=== PATIENT | female | born 1975 | race Hispanic/Latino ===

== ENCOUNTER 2018-03-19 07:33 | Emergency (ER) | payer BC ==
[2018-03-19] MEDS ORDERED: predniSONE 20 MG TAB ONE (07:56)
[2018-03-19] MEDS ORDERED: KETOROLAC 30 MG/ML INJ ONE (07:56)
--- NOTE | 2018-03-19 08:51 | ER ---
Nurse's Notes [facility] Name: Jeannette Lin Age: 42 yrs Sex: Female : 1975 Arrival Date: 03/19/2018 Time: 07:37 Bed 7 Private MD: Diagnosis: Radiculopathy, cervical region Presentation: 03/19 07:49 Presenting complaint: Patient states: pain to L side of neck that radiates down L arm ss that began 4 days ago. Pain is worse with movement of neck and palpation of the affected area. Denies injury. Transition of care: patient was not received from another setting of care. Acute neurological deficit: none identified. Onset of symptoms was March 15, 2018. Initial Sepsis Screen: Does the patient meet any 2 criteria? No. Patient's initial sepsis screen is negative. Does the patient have a suspected source of infection? No. Patient's initial sepsis screen is negative. Care prior to arrival: None. 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 - Social history:: Smoking status: Patient/guardian denies using tobacco. - Family history:: not pertinent. - Hospitalizations: : No recent hospitalization is reported. Screenin:00 Abuse screen: Denies threats or abuse. Nutritional screening: No deficits noted. aa5 Tuberculosis screening: No symptoms or risk factors identified. Fall Risk None identified. Assessment: 08:00 General: Appears uncomfortable, Behavior is calm, cooperative. Pain: Complains of pain aa5 in left side of neck Pain radiates to left arm Pain currently is 10 out of 10 on a pain scale. Quality of pain is described as sharp, shooting, Pain began 4 days ago Is continuous, Aggravated by increased activity. Neuro: Level of Consciousness is awake, alert, obeys commands, Oriented to person, place, time, situation. Cardiovascular: Heart tones S1 S2 present Rhythm is regular. Respiratory: Airway is patent Respiratory effort is even, unlabored, Respiratory pattern is regular, symmetrical. GI: No signs and/or symptoms were reported involving the gastrointestinal system. : No signs and/or symptoms were reported regarding the genitourinary system. EENT: No signs and/or symptoms were reported regarding the EENT system. Derm: Skin is pink, warm \T\ dry. Musculoskeletal: Range of motion: intact in all extremities. 08:30 Reassessment: Patient and/or family updated on plan of care and expected duration. Pain aa5 level reassessed. Patient is alert, oriented x 3, equal unlabored respirations, skin warm/dry/pink. Patient states feeling better. 08:30 Pain: Pain currently is 5 out of 10 on a pain scale. aa5 Vital Signs: 07:51 BP 109 / 69; Pulse 63; Resp 17; Temp 97.3(TE); Pulse Ox 98% on R/A; Height 5 ft. 7 in. ss (170.18 cm); 08:35 BP 103 / 65; Pulse 60; Resp 18 S; Pulse Ox 99% on R/A; Pain 5/10; aa5 ED Course: 07:37 Patient arrived in ED. sb2 07:40 José Luis Carson MD is Attending Physician. rn 07:50 eBla Delgado RN is Primary Nurse. aa5 07:50 Triage completed. ss 07:51 Arm band placed on right wrist. ss 08:00 Patient has correct armband on for positive identification. Bed in low position. Call aa5 light in reach. Side rails up X2. Adult w/ patient. 08:27 No provider procedures requiring assistance completed. aa5 08:58 Patient did not have IV access during this emergency room visit. aa5 Administered Medications: 08:00 Drug: TORadol 30 mg Route: IM; Site: left gluteus; aa5 08:00 Drug: predniSONE 60 mg Route: PO; aa5 Outcome: 08:50 Discharge ordered by . rn 08:58 Discharged to home ambulatory, with family. aa5 08:58 Condition: improved 08:58 Discharge instructions given to patient, Instructed on discharge instructions, follow up and referral plans. medication usage, Demonstrated understanding of instructions, follow-up care, medications, Prescriptions given X 2. 08:59 Patient left the ED. aa5 Signatures: José Luis Carson MD MD rn Calderon, Audri RN RN aa5 Kenya Sexton RN RN ss Alee Beckwith sb2
--- NOTE | 2018-03-19 08:51 | EDPHYS ---
Physician Documentation [facility] Name: Jeannette Lin Age: 42 yrs Sex: Female : 1975 Arrival Date: 03/19/2018 Time: 07:37 Bed 7 Private MD: ED Physician José Luis Carson HPI: 03/19 07:46 This 42 yrs old Female presents to ER via Unassigned with complaints of Neck rn Pain, >24Hrs Old, Headache > 24hrs Old, RAPID HEARTBEAT. 07:46 The patient or guardian complains of pain. The symptoms are located on the neck. Onset: rn The symptoms/episode began/occurred 1 week(s) ago. Associated signs and symptoms: Pertinent positives: This patient does not have any pertinent positive signs or symptoms associated with neck pain. Pertinent negatives: fever, bladder incontinence, bowel incontinence, numbness, tingling, weakness. The pain radiates to the left arm. Modifying factors: The symptoms are alleviated by nothing. the symptoms are aggravated by movement. Severity of symptoms: At their worst the symptoms were mild, in the emergency department the symptoms are unchanged. The patient has not experienced similar symptoms in the past. Reports neck pain that radiates down left arm, no chest pain/sob, no neck injuries, no weakness, reports left neck hurts to turn to left, and when moves left arm, no numbness/tingling, no other focal neurological complaints. . 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 - Social history:: Smoking status: Patient/guardian denies using tobacco. - Family history:: not pertinent. - Hospitalizations: : No recent hospitalization is reported. ROS: 07:46 Constitutional: Negative for fever, chills, and weight loss, Eyes: Negative for injury, rn pain, redness, and discharge, Neck: + neck pain Cardiovascular: Negative for chest pain Respiratory: Negative for shortness of breath, cough, wheezing, and pleuritic chest pain, Abdomen/GI: Negative for abdominal pain, nausea, vomiting, diarrhea, and constipation, MS/Extremity: Negative for injury and deformity, Skin: Negative for injury, rash, and discoloration, Neuro: Negative for weakness, numbness, tingling, and seizure. Exam: 07:46 Constitutional: This is a well developed, well nourished patient who is awake, alert, rn and in no acute distress. Head/Face: Normocephalic, atraumatic. Eyes: Pupils equal round and reactive to light, extra-ocular motions intact. Lids and lashes normal. Conjunctiva and sclera are non-icteric and not injected. Cornea within normal limits. Periorbital areas with no swelling, redness, or edema. Neck: Trachea midline, no thyromegaly or masses palpated, and no cervical lymphadenopathy. Supple, full range of motion without nuchal rigidity, or vertebral point tenderness. No Meningismus. Cardiovascular: Regular rate and rhythm with a normal S1 and S2. No gallops, murmurs, or rubs. Normal PMI, no JVD. No pulse deficits. Respiratory: Lungs have equal breath sounds bilaterally, clear to auscultation and percussion. No rales, rhonchi or wheezes noted. No increased work of breathing, no retractions or nasal flaring. Abdomen/GI: Soft, non-tender, with normal bowel sounds. No distension or tympany. No guarding or rebound. No evidence of tenderness throughout. Skin: Warm, dry with normal turgor. Normal color with no rashes, no lesions, and no evidence of cellulitis. MS/ Extremity: Pulses equal, no cyanosis. Neurovascular intact. + painful ROM left shoulder, + tender over left SCM/trapezius Neuro: Awake and alert, GCS 15, oriented to person, place, time, and situation. Cranial nerves II-XII grossly intact. Motor strength 5/5 in all extremities. Sensory grossly intact. Cerebellar exam normal. Normal gait. 08:49 ECG was reviewed by the Attending Physician. rn Vital Signs: 07:51 BP 109 / 69; Pulse 63; Resp 17; Temp 97.3(TE); Pulse Ox 98% on R/A; Height 5 ft. 7 in. ss (170.18 cm); 08:35 BP 103 / 65; Pulse 60; Resp 18 S; Pulse Ox 99% on R/A; Pain 5/10; aa5 MDM: 07:40 Patient medically screened. rn 08:49 Differential diagnosis: arthritis, Cervical Discogenic Pain Cervical Facet Syndrome rn Cervical Raiculopathy cervical strain, torticollis. Data reviewed: vital signs, nurses notes, EKG, and as a result, I will discharge patient. Counseling: I had a detailed discussion with the patient and/or guardian regarding: the historical points, exam findings, and any diagnostic results supporting the discharge/admit diagnosis, the need for outpatient follow up, to return to the emergency department if symptoms worsen or persist or if there are any questions or concerns that arise at home. Response to treatment: the patient's symptoms have mildly improved after treatment, and as a result, I will discharge patient. Special discussion: I discussed with the patient/guardian in detail that at this point there is no indication for admission to the hospital. It is understood, however, that if the symptoms persist or worsen the patient needs to return immediately for re-evaluation. 03/19 07:46 Order name: EKG; Complete Time: 07:46 rn 03/19 07:46 Order name: EKG - Nurse/Tech; Complete Time: 08:02 rn EC:49 Rate is 51 beats/min. Rhythm is regular. QRS [place] is Normal. HI interval is normal. QRS rn interval is normal. QT interval is normal. No Q waves. T waves are Normal. No ST changes noted. Clinical impression: Sinus bradycardia. Administered Medications: 08:00 Drug: TORadol 30 mg Route: IM; Site: left gluteus; aa5 08:00 Drug: predniSONE 60 mg Route: PO; aa5 Disposition: 03/19/18 08:50 Discharged to Home. Impression: Radiculopathy, cervical region. - Condition is Stable. - Discharge Instructions: Cervical Radiculopathy. - Prescriptions for Cyclobenzaprine 10 mg Oral Tablet - take 1 tablet by ORAL route every 8 hours As needed; 20 tablet. Medrol (Edgardo) 4 mg Oral Tablets, Dose Pack - take 1 tablet by ORAL route as directed - follow package instructions; 1 packet. - Medication Reconciliation Form, Thank You Letter, Antibiotic Education, Prescription Opioid Use form. - Follow up: Private Physician; When: As needed; Reason: Recheck today's complaints, Re-evaluation by your physician. - Problem is new. - Symptoms have improved. Signatures: José Luis Carson MD MD rn Calderon, Audri, RN RN aa5 Kenya Sexton RN RN ss Corrections: (The following items were deleted from the chart) 08:59 08:50 03/19/2018 08:50 Discharged to Home. Impression: Radiculopathy, cervical region. aa5 Condition is Stable. Forms are Medication Reconciliation Form, Thank You Letter, Antibiotic Education, Prescription Opioid Use. Follow up: Private Physician; When: As needed; Reason: Recheck today's complaints, Re-evaluation by your physician. Problem is new. Symptoms have improved. rn
[2018-03-19 09:03] VITALS: BP 109/69; TEMP 97.3; O2SAT 98
--- NOTE | 2018-03-20 05:49 | EKG ---
Test Date: 2018-03-19 Test Time: 07:55:51 Piano Bench Assembler: MARIMAR MEASUREMENT RESULTS: Intervals: Rate: 51 SC: 150 QRSD: 82 QT: 444 QTc: 409 [place]: P: 45 SC: 150 QRS: 47 T: 48 INTERPRETIVE STATEMENTS: Sinus bradycardia Otherwise normal ECG Compared to ECG 09/22/2012 09:59:11 No significant changes Electronically Signed On 03-20-18 05:48:52 CDT by Alber Persaud
== END 2018-03-19 08:59 | disposition home or self-care (01) ==
LOC: ER 07:33
DX: M54.12 Radiculopathy, cervical region (principal); I10 Essential (primary) hypertension
CPT/HCPCS: 93005; 96372; 99283; J7512

== ENCOUNTER 2018-09-19 15:07 | Emergency (ER) | payer BC ==
--- NOTE | 2018-09-19 15:22 | EKG ---
Test Date: 2018-09-19 Test Time: 15:15:59 Labourers: JESSICA MEASUREMENT RESULTS: Intervals: Rate: 60 DC: 144 QRSD: 76 QT: 398 QTc: 398 [place]: P: 39 DC: 144 QRS: 37 T: 55 INTERPRETIVE STATEMENTS: Normal sinus rhythm Normal ECG Compared to ECG 03/19/2018 07:55:51 Sinus bradycardia no longer present Electronically Signed On 09-19-18 15:22:10 FLATWORK FOLDER by Alber Persaud
--- NOTE | 2018-09-19 15:43 | RAD REPORT ---
EXAM DESCRIPTION: RAD - Chest Single View - 09/19/2018 3:38 pm CLINICAL HISTORY: CHEST PAIN Chest pain. COMPARISON: CHEST SINGLE VIEW dated 09/22/2012; CHEST SINGLE VIEW dated 09/08/2010 FINDINGS: Portable technique limits examination quality. The lungs are grossly clear. The heart is normal in size. No displaced fractures. IMPRESSION: No acute intrathoracic process suspected.
[2018-09-19] MEDS ORDERED: NA CHLORIDE 0.9% 1,000 ML ONE (15:59)
[2018-09-19] MEDS ORDERED: DIAZEPAM 10 MG/2 ML INJ SYRINGE ONE (16:01)
[2018-09-19 16:03] LABS: Absolute Lymphocytes (CBC) 3.3 K/uL (0.7-4.9); Absolute Monocytes 0.8 K/uL (0.1-1.3); Absolute Neutrophil 8.4 K/uL (1.8-8.0); Basophils % 0.6 % (0-1.3); Eosinophils % 2.3 % (0-4.4); Lymphocytes % 25.7 % (15.3-44.8); MCH 30.4 pg (27.0-35.0); MCV 87.2 fL (80-100); MPV 8.6 fL (7.6-11.3); Monocytes % 6.1 % (3.3-12.3); RBC Red Blood Cell Count 3.78 M/uL (3.86-4.86)
[2018-09-19 16:25] LABS: ALT/SGPT 27 U/L (12-78); AST/SGOT 21 U/L (15-37); Albumin 3.8 g/dL (3.4-5.0); Alkaline Phosphatase 102 U/L (45-117); BUN Blood Urea Nitrogen 25 mg/dL (7-18); Bicarbonate 22 mmol/L (21-32); Bilirubin Direct 0.1 mg/dL (0-0.2); Bilirubin Total 0.4 mg/dL (0.2-1.0); Glucose Level 83 mg/dL (74-106); Magnesium 2.2 mg/dL (1.8-2.4); Potassium 4.1 mmol/L (3.5-5.1); Sodium Level 139 mmol/L (136-145); Troponin (Emerg Dept Use Only) < 0.02 ng/mL (0.0-0.045)
--- NOTE | 2018-09-19 16:54 | RAD REPORT ---
EXAM DESCRIPTION: CT - Chest For Pe Angio - 09/19/2018 4:40 pm CLINICAL HISTORY: Chest pain and shortness of breath COMPARISON: None. TECHNIQUE: Dynamically enhanced axial 3 mm thick images of the chest were obtained during administra tion of <100> mL Isovue 370 IV contrast. Coronal and oblique reconstruction images were generated and reviewed. Exam utilizes a protocol for optimal evaluation of pulmonary arterial tree. Maximum intensity projections 3D imaging was utilized All CT scans are performed using dose optimization technique as appropriate and may include automated exposure control or mA/KV adjustment according to patient size. FINDINGS: A pulmonary embolus is not seen. A thoracic aortic aneurysm is not noted. Bovine aorta A pleural effusion is not seen. A pericardial effusion is not seen. A lung consolidation is not present. Calcified mediastinal and hilar lymph nodes are seen 1 Small right adrenal adenoma is seen IMPRESSION: Negative for a pulmonary embolism.
--- NOTE | 2018-09-19 17:51 | EDPHYS ---
Physician Documentation [facility] Name: Jeannette Lin Age: 42 yrs Sex: Female : 1975 Arrival Date: 09/19/2018 Time: 15:10 Bed 15 Private MD: ED Physician José Luis Carson HPI: 09/19 15:36 This 42 yrs old Female presents to ER via Ambulatory with complaints of Blood snw Pressure Problem, Dizziness. 15:36 Onset: The symptoms/episode began/occurred 2 week(s) ago, and became persistent. snw Associated signs and symptoms: Pertinent positives: chest pain, shortness of breath. Modifying factors: The patient symptoms are alleviated by nothing. The patient has not experienced similar symptoms in the past. The patient has been recently seen by a physician: the patient's primary care provider, at a clinic. pt attributes new s/s to beginning Statin for hyperlipidemia. Instructed today to stop lisinopril/HCTZ but refuses because if she does it causes swelling and she states it makes her feel worse.. 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 - Social history:: Smoking status: Patient/guardian denies using tobacco. - Ebola Screening: : Patient negative for fever greater than or equal to 101.5 degrees Fahrenheit, and additional compatible Ebola Virus Disease symptoms Patient denies exposure to infectious person Patient denies travel to an Ebola-affected area in the 21 days before illness onset No symptoms or risks identified at this time. ROS: 15:36 Constitutional: Negative for fever, chills, and weight loss, Eyes: Negative for injury, snw pain, redness, and discharge, ENT: Negative for injury, pain, and discharge, Neck: Negative for injury, pain, and swelling. 15:36 Abdomen/GI: Negative for abdominal pain, nausea, vomiting, diarrhea, and constipation, Back: Negative for injury and pain, : Negative for injury, bleeding, discharge, and swelling, MS/Extremity: Negative for injury and deformity, Skin: Negative for injury, rash, and discoloration, Neuro: Negative for headache, weakness, numbness, tingling, and seizure. 15:36 Cardiovascular: Positive for chest pain. 15:36 Respiratory: Positive for shortness of breath. Exam: 15:36 Head/Face: Normocephalic, atraumatic. Eyes: Pupils equal round and reactive to light, snw extra-ocular motions intact. Lids and lashes normal. Conjunctiva and sclera are non-icteric and not injected. Cornea within normal limits. Periorbital areas with no swelling, redness, or edema. ENT: Nares patent. No nasal discharge, no septal abnormalities noted. Tympanic membranes are normal and external auditory canals are clear. Oropharynx with no redness, swelling, or masses, exudates, or evidence of obstruction, uvula midline. Mucous membranes moist. Neck: Trachea midline, no thyromegaly or masses palpated, and no cervical lymphadenopathy. Supple, full range of motion without nuchal rigidity, or vertebral point tenderness. No Meningismus. Chest/axilla: Normal chest wall appearance and motion. Nontender with no deformity. No lesions are appreciated. Cardiovascular: Regular rate and rhythm with a normal S1 and S2. No gallops, murmurs, or rubs. Normal PMI, no JVD. No pulse deficits. 15:36 Constitutional: The patient appears alert, awake, anxious. 15:36 Respiratory: the patient does not display signs of respiratory distress, Respirations: shallow respirations, that is moderate, Breath sounds: are clear throughout, speaks in short bursts and then long inhalations. Vital Signs: 15:16 BP 109 / 45; Pulse 60; Resp 20; Temp 97.6; Pulse Ox 100% on R/A; Weight 112.04 kg; aj Height 5 ft. 3 in. (160.02 cm); 16:21 BP 90 / 58; Pulse 53; Resp 12; Pulse Ox 100% ; bp 17:00 BP 98 / 62; Pulse 57; Resp 14; Pulse Ox 100% ; bp 18:00 BP 111 / 61; Pulse 61; Resp 14; Pulse Ox 100% ; bp 15:16 Body Mass Index 43.75 (112.04 kg, 160.02 cm) aj MDM: 15:19 Patient medically screened. snw 17:51 Data reviewed: vital signs, nurses notes. Data interpreted: Pulse oximetry: on room air snw is 100 %. Counseling: I had a detailed discussion with the patient and/or guardian regarding: the historical points, exam findings, and any diagnostic results supporting the discharge/admit diagnosis, lab results, the need for outpatient follow up, to return to the emergency department if symptoms worsen or persist or if there are any questions or concerns that arise at home. Special discussion: Based on the patient's history, exam, and Dx evaluation, there is no indication for emergent intervention or inpatient Tx. It is understood by the patient/guardian that if the Sx's persist or worsen they need to return immediately for re-evaluation. Based on the history and exam findings, there is no indication for further emergent testing or inpatient evaluation. I discussed with the patient/guardian the need to see the construction supervisor for further evaluation of the symptoms. I discussed with the patient/guardian the need to see the primary care provider for further evaluation of the symptoms. 09/19 15:20 Order name: Basic Metabolic Panel; Complete Time: 16:29 snw 09/19 15:20 Order name: CBC with Diff; Complete Time: 16:14 snw 09/19 15:20 Order name: LFT's; Complete Time: 16:29 snw 09/19 15:20 Order name: Magnesium; Complete Time: 16:29 snw 09/19 15:20 Order name: Troponin (emerg Dept Use Only); Complete Time: 16:29 snw 09/19 15:20 Order name: TS; Complete Time: 17:03 snw 09/19 15:20 Order name: XRAY Chest (1 view); Complete Time: 15:53 snw 09/19 15:20 Order name: EKG; Complete Time: 15:21 snw 09/19 15:20 Order name: Cardiac monitoring; Complete Time: 15:48 snw 09/19 15:20 Order name: EKG - Nurse/Tech; Complete Time: 15:48 snw 09/19 15:20 Order name: IV Saline Lock; Complete Time: 15:48 snw 09/19 15:31 Order name: CT Chest For PE Angio; Complete Time: 17:03 snw 09/19 15:20 Order name: Labs collected and sent; Complete Time: 15:48 snw 09/19 15:20 Order name: O2 Per Protocol; Complete Time: 15:48 snw 09/19 15:20 Order name: O2 Sat Monitoring; Complete Time: 15:48 snw Administered Medications: 15:45 Drug: Valium 1 mg Route: IVP; Site: right antecubital; bp 17:26 Follow up: Response: No adverse reaction; Anxiety decreased bp 15:50 Drug: NS 0.9% 1000 ml Route: IV; Rate: 1 bolus; Site: right antecubital; bp 17:27 Follow up: IV Status: Completed infusion; IV Intake: 1000ml bp 18:05 Follow up: IV Status: Completed infusion; IV Intake: 1000ml bp Disposition: 18:34 Co-signature as Attending Physician, José Luis Carson MD. rn Disposition: 09/19/18 17:50 Discharged to Home. Impression: Chest pain, unspecified. - Condition is Stable. - Discharge Instructions: Nonspecific Chest Pain, Hypertension, Aspirin and Your Heart, Fat and Cholesterol Restricted Diet, [id number]. - Prescriptions for Protonix 40 mg Oral Tablet - take 1 tablet by ORAL route once daily; 30 tablet. Hydrochlorothiazide 25 mg Oral Tablet - take 1 tablet by ORAL route once daily .; 30 tablet. - Medication Reconciliation Form, Thank You Letter, Antibiotic Education, Prescription Opioid Use form. - Work release form (09/19/18 18:40). bp - Follow up: Private Physician; When: 2 - 3 days; Reason: Recheck today's complaints, Continuance of care, Re-evaluation by your physician. Follow up: Emergency Department; When: As needed; Reason: Worsening of condition. - Notes: Stop Lisinopril/HCTZ as directed by PCP Signatures: Dispatcher [employer] Corina Branham RN RN Alisa Funez, SHUTTLE FILLER-C SHUTTLE FILLER-Csnw José Luis Carson MD MD rn Peltier, Brian, RN RN bp Corrections: (The following items were deleted from the chart) 18:20 17:50 09/19/2018 17:50 Discharged to Home. Impression: Chest pain, unspecified. bp Condition is Stable. Forms are Medication Reconciliation Form, Thank You Letter, Antibiotic Education, Prescription Opioid Use. Follow up: Private Physician; When: 2 - 3 days; Reason: Recheck today's complaints, Continuance of care, Re-evaluation by your physician. Follow up: Emergency Department; When: As needed; Reason: Worsening of condition. stefano
--- NOTE | 2018-09-19 17:51 | ER ---
Nurse's Notes [facility] Name: Jeannette Lin Age: 42 yrs Sex: Female : 1975 Arrival Date: 09/19/2018 Time: 15:10 Bed 15 Private MD: Diagnosis: Chest pain, unspecified Presentation: 09/19 15:13 Presenting complaint: Patient states: Reports dizziness, nausea, SOB, chest pain, and aj headache for 2 weeks since starting cholesterol medication. Patient went to see PCP today and was told that her blood pressure was too low and she should come to the emergency room. Reports 90/ 51 in office. Transition of care: patient was not received from another setting of care. Onset of symptoms was September 03, 2018. Risk Assessment: Do you want to hurt yourself or someone else? Patient reports no desire to harm self or others. Initial Sepsis Screen: Does the patient meet any 2 criteria? No. Patient's initial sepsis screen is negative. Does the patient have a suspected source of infection? No. Patient's initial sepsis screen is negative. Care prior to arrival: None. 15:13 Method Of Arrival: Ambulatory 15:13 Acuity: ANDIE 3 aj Triage Assessment: 15:16 General: Appears in no apparent distress. comfortable, Behavior is calm, cooperative, aj appropriate for age. Pain: Complains of pain in face and scalp. 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 Full function Gait is steady, Speech is normal, Facial symmetry appears normal, Reports dizziness, headache. Respiratory: Reports shortness of breath Airway is patent Respiratory effort is even, unlabored, Respiratory pattern is regular, symmetrical. GI: Reports nausea. Derm: Skin is intact, is healthy with good turgor, Skin is pink, warm \T\ dry. normal. 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 - Social history:: Smoking status: Patient/guardian denies using tobacco. - Ebola Screening: : Patient negative for fever greater than or equal to 101.5 degrees Fahrenheit, and additional compatible Ebola Virus Disease symptoms Patient denies exposure to infectious person Patient denies travel to an Ebola-affected area in the 21 days before illness onset No symptoms or risks identified at this time. Screenin:06 Abuse screen: Denies threats or abuse. Denies injuries from another. Nutritional bp screening: No deficits noted. Tuberculosis screening: No symptoms or risk factors identified. Fall Risk None identified. Assessment: 15:20 General: Appears in no apparent distress. comfortable, Behavior is cooperative, bp appropriate for age, anxious. Pain: Denies pain. Neuro: Level of Consciousness is awake, alert, obeys commands, Oriented to person, place, time, situation, Appropriate for age. Cardiovascular: No deficits noted. Respiratory: Airway is patent Respiratory effort is even, unlabored, Respiratory pattern is regular, symmetrical. GI: No signs and/or symptoms were reported involving the gastrointestinal system. : No signs and/or symptoms were reported regarding the genitourinary system. EENT: No deficits noted. Derm: No deficits noted. Musculoskeletal: Circulation, motion, and sensation intact. Range of motion: intact in all extremities. 16:21 Reassessment: PT SLEEPING, CT PE PENDING. bp 17:27 Reassessment: ALL CURRENT ORDERS COMPLETED, RESULTS PENDING. bp 18:04 Reassessment: PT D/C HOME AMBULATORY WITH FAMILY, DX WITH NONSPECIFIC CHEST PAIN. bp Vital Signs: 15:16 BP 109 / 45; Pulse 60; Resp 20; Temp 97.6; Pulse Ox 100% on R/A; Weight 112.04 kg; aj Height 5 ft. 3 in. (160.02 cm); 16:21 BP 90 / 58; Pulse 53; Resp 12; Pulse Ox 100% ; bp 17:00 BP 98 / 62; Pulse 57; Resp 14; Pulse Ox 100% ; bp 18:00 BP 111 / 61; Pulse 61; Resp 14; Pulse Ox 100% ; bp 15:16 Body Mass Index 43.75 (112.04 kg, 160.02 cm) aj ED Course: 15:10 Patient arrived in ED. mr 15:15 Triage completed. aj 15:16 Arm band placed on right wrist. Patient placed in an exam room, on a stretcher. EKG aj completed in triage. Results shown to MD. 15:19 Alisa Chopra FNP-C is PSYCHIATRICP. snw 15:19 José Luis Carson MD is Attending Physician. snw 15:30 Adelso Erazo, RN is Primary Nurse. bp 15:38 X-ray completed. Portable x-ray completed in exam room. Patient tolerated procedure ml well. 15:39 XRAY Chest (1 view) In Process Unspecified. EDMS 15:49 Inserted saline lock: 18 gauge in right antecubital area, using aseptic technique. bp Blood collected. 15:57 Radiology exam delayed due to lab results not completed at this time. (BUN/Creatinine). sj 16:06 Patient has correct armband on for positive identification. Bed in low position. Call bp light in reach. Side rails up X2. Adult w/ patient. 16:24 Radiology exam delayed due to lab results not completed at this time. (BUN/Creatinine). 2 16:[address] via stretcher. nj 16:40 CT completed. Patient tolerated procedure well. Patient moved back from CT. nj 16:40 CT Chest For PE Angio In Process Unspecified. EDMS 18:04 No provider procedures requiring assistance completed. IV discontinued, intact, bp bleeding controlled, No redness/swelling at site. Pressure dressing applied. Administered Medications: 15:45 Drug: Valium 1 mg Route: IVP; Site: right antecubital; bp 17:26 Follow up: Response: No adverse reaction; Anxiety decreased bp 15:50 Drug: NS 0.9% 1000 ml Route: IV; Rate: 1 bolus; Site: right antecubital; bp 17:27 Follow up: IV Status: Completed infusion; IV Intake: 1000ml bp 18:05 Follow up: IV Status: Completed infusion; IV Intake: 1000ml bp Intake: 17:27 IV: 1000ml; Total: 1000ml. bp 18:05 IV: 1000ml; Total: 2000ml. bp Outcome: 17:50 Discharge ordered by . snw 18:05 Discharged to home ambulatory, with family. bp 18:05 Condition: stable 18:05 Discharge instructions given to patient, Instructed on discharge instructions, follow up and referral plans. medication usage, Demonstrated understanding of instructions, follow-up care, medications, Prescriptions given X 2. 18:20 Patient left the ED. bp Signatures: Dispatcher [employer] Corina Branham, DONNA RN Alisa Funez, COLOR SPRAYER-C COLOR SPRAYER-Kemiw Augusta Mcdonald mr Jasmeet, Katia Ballard, Eliana Mckeon, Laisha Wall [facility] Adelso Erazo RN RN bp Corrections: (The following items were deleted from the chart) 15:18 15:16 Arm band placed on right wrist. Patient placed in waiting room, Patient notified aj of wait time aj
[2018-09-19 19:11] VITALS: TEMP 97.6; O2SAT 100
[2018-09-19 19:15] VITALS: BP 111/61
== END 2018-09-19 18:20 | disposition home or self-care (01) ==
LOC: ER 15:07
DX: R07.9 Chest pain, unspecified (principal); I10 Essential (primary) hypertension; E78.5 Hyperlipidemia, unspecified
CPT/HCPCS: 36415; 71045; 71275; 80048; 80076; 83735; 84484; 85025; 86850; 86900; 86901; 93005; 96361; 96374; 99284; J3360; J7030; Q9967

== ENCOUNTER 2018-11-26 12:30 | Emergency (ER) | payer BC ==
[2018-11-26] MEDS ORDERED: HYDROCODONE/APAP 5/325 MG TAB ONE (12:54)
--- NOTE | 2018-11-26 13:51 | ER ---
Nurse's Notes [facility] Name: Jeannette Lin Age: 42 yrs Sex: Female : 1975 Arrival Date: 11/26/2018 Time: 12:32 Bed 30 Private MD: None, None Diagnosis: Other sprain of right foot Presentation: 11/26 12:36 Presenting complaint: Patient states: right foot and ankle pain after twisting it at sv work. Transition of care: patient was not received from another setting of care. Onset of symptoms was November 26, 2018. Care prior to arrival: None. 12:36 Method Of Arrival: Wheelchair sv 12:36 Acuity: ANDIE 4 sv 12:55 Risk Assessment: Do you want to hurt yourself or someone else? Patient reports no tw2 desire to harm self or others. Initial Sepsis Screen: Does the patient meet any 2 criteria? No. Patient's initial sepsis screen is negative. Does the patient have a suspected source of infection? No. Patient's initial sepsis screen is negative. Triage Assessment: 12:38 General: Appears in no apparent distress. uncomfortable, Behavior is calm, cooperative, sv appropriate for age. Pain: Complains of pain in right ankle Pain currently is 10 out of 10 on a pain scale. Neuro: Level of Consciousness is awake, alert, obeys commands, Oriented to person, place, time, situation, Moves all extremities. Respiratory: Respiratory effort is even, unlabored, Respiratory pattern is regular, symmetrical. 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 tw2 Historical: - Allergies: 12:37 No Known Allergies; sv - Home Meds: 12:55 atorvastatin Oral [Active]; atenolol 50 mg Oral tab 1 tab 2 times per day [Active]; tw2 lisinopril Oral once daily [Active]; - PMHx: 12:37 Hyperlipidemia; Hypertension; sv - PSHx: 12:37 ; Tubal ligation; sv - Immunization history:: Adult Immunizations up to date. - Social history:: Smoking status: Patient/guardian denies using tobacco. - Ebola Screening: : No symptoms or risks identified at this time. Screenin:54 Abuse screen: Denies threats or abuse. Nutritional screening: No deficits noted. tw2 Tuberculosis screening: No symptoms or risk factors identified. Fall Risk None identified. Assessment: 12:52 General: Appears uncomfortable, obese, Behavior is crying. Pain: Complains of pain in tw2 right ankle. Neuro: Level of Consciousness is awake, alert, obeys commands, Oriented to person, place, time, situation. Cardiovascular: Patient's skin is warm and dry. Respiratory: Airway is patent Respiratory effort is even, unlabored, Respiratory pattern is regular, symmetrical. GI: No signs and/or symptoms were reported involving the gastrointestinal system. : No signs and/or symptoms were reported regarding the genitourinary system. EENT: No signs and/or symptoms were reported regarding the EENT system. Derm: No signs and/or symptoms reported regarding the dermatologic system. Musculoskeletal: Circulation, motion, and sensation intact. Swelling present in right ankle. 13:30 Reassessment: Patient appears in no apparent distress at this time. Patient and/or tw2 family updated on plan of care and expected duration. Pain level reassessed. Patient is alert, oriented x 3, equal unlabored respirations, skin warm/dry/pink. Patient states feeling better. 14:15 Reassessment: Patient appears in no apparent distress at this time. Patient and/or tw2 family updated on plan of care and expected duration. Pain level reassessed. Patient is alert, oriented x 3, equal unlabored respirations, skin warm/dry/pink. Patient states feeling better. Vital Signs: 12:37 BP 108 / 67; Pulse 72; Resp 20; Temp 98.2; Pulse Ox 99% ; Weight 99.79 kg; Height 5 ft. sv 7 in. (170.18 cm); Pain 10/10; 13:29 BP 121 / 71; Pulse 61; Resp 18; Pulse Ox 100% on R/A; Pain 7/10; tw2 13:29 Pain 7/10; tw2 12:37 Body Mass Index 34.46 (99.79 kg, 170.18 cm) sv ED Course: 12:32 Patient arrived in ED. as 12:32 None, None is Private Physician. as 12:37 Triage completed. sv 12:37 Arm band placed on Patient placed in an exam room, on a stretcher. sv 12:38 Bed in low position. Call light in reach. Adult w/ patient. Pulse ox on. NIBP on. tw2 12:39 Sofi Kimbrough FNP-C is [facility]. kb 12:39 Jama Chen MD is Attending Physician. kb 12:42 Danielle Gustafson, RN is Primary Nurse. tw2 13:42 Foot Right 3 View XRAY In Process Unspecified. EDMS 14:15 No provider procedures requiring assistance completed. Patient did not have IV access tw2 during this emergency room visit. Crutch training done. Bernard wrap to right foot and right ankle. Administered Medications: 12:45 Drug: [place] 5 mg-325 mg 1 tabs Route: PO; tw2 13:29 Follow up: Pain 7/ Adult; Response: No adverse reaction; Pain is decreased tw2 Outcome: 13:50 Discharge ordered by MD. kb 14:15 Patient left the ED. tw2 14:15 Discharged to home via wheelchair, with crutches, with family. tw2 14:15 Condition: stable 14:15 Discharge instructions given to patient, family, Instructed on discharge instructions, follow up and referral plans. medication usage, safety practices, crutch walking, Demonstrated understanding of instructions, follow-up care, medications, crutch walking, Prescriptions given X 1. Signatures: Dispatcher [employer] EDWA Sofi Kimbrough FNP-C FNP-Isabel Coffey RN RN Arin Curtis as Danielle Gustafson, RN RN tw2 Corrections: (The following items were deleted from the chart) 12:38 12:37 Pulse 72bpm; Resp 20bpm; Pulse Ox 99%; Temp 98.2F; 99.79 kg; Height 5 ft. 7 in.; sv BMI: 34.4; Pain 10/10; sv
--- NOTE | 2018-11-26 13:52 | EDPHYS ---
Physician Documentation [facility] Name: Jeannette Lin Age: 42 yrs Sex: Female : 1975 Arrival Date: 11/26/2018 Time: 12:32 Bed 30 Private MD: None, None ED Physician Jama Chen HPI: 11/26 13:17 This 42 yrs old Female presents to ER via Wheelchair with complaints of Ankle kb Injury. 13:17 The patient presents with pain, swelling, tenderness. The complaints affect the right kb foot. Context: The problem was sustained at work, resulted from a mis-step by the patient, the patient can partially bear weight, the patient is not able to ambulate. Onset: The symptoms/episode began/occurred just prior to arrival. Modifying factors: The symptoms are alleviated by nothing, the symptoms are aggravated by weight bearing, movement. Associated signs and symptoms: Pertinent positives: swelling, Pertinent negatives: calf tenderness, fever, nausea, numbness, rash, tingling, vomiting, warmth, weakness. Severity of symptoms: At their worst the symptoms were moderate, in the emergency department the symptoms are unchanged. The patient has not experienced similar symptoms in the past. The patient has not recently seen a physician. 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 tw2 Historical: - Allergies: 12:37 No Known Allergies; sv - Home Meds: 12:55 atorvastatin Oral [Active]; atenolol 50 mg Oral tab 1 tab 2 times per day [Active]; tw2 lisinopril Oral once daily [Active]; - PMHx: 12:37 Hyperlipidemia; Hypertension; sv - PSHx: 12:37 ; Tubal ligation; sv - Immunization history:: Adult Immunizations up to date. - Social history:: Smoking status: Patient/guardian denies using tobacco. - Ebola Screening: : No symptoms or risks identified at this time. ROS: 13:16 Constitutional: Negative for fever, chills, and weight loss, Cardiovascular: Negative kb for chest pain, palpitations, and edema, Respiratory: Negative for shortness of breath, cough, wheezing, and pleuritic chest pain, Abdomen/GI: Negative for abdominal pain, nausea, vomiting, diarrhea, and constipation, Back: Negative for injury and pain, Skin: Negative for injury, rash, and discoloration, Neuro: Negative for headache, weakness, numbness, tingling, and seizure. 13:16 MS/extremity: Positive for injury or acute deformity, pain, tenderness, of the dorsum of right foot. Exam: 13:14 Constitutional: This is a well developed, well nourished patient who is awake, alert, kb and in no acute distress. Head/Face: Normocephalic, atraumatic. Chest/axilla: Normal chest wall appearance and motion. Nontender with no deformity. No lesions are appreciated. Cardiovascular: Regular rate and rhythm with a normal S1 and S2. No gallops, murmurs, or rubs. Normal PMI, no JVD. No pulse deficits. Respiratory: Lungs have equal breath sounds bilaterally, clear to auscultation and percussion. No rales, rhonchi or wheezes noted. No increased work of breathing, no retractions or nasal flaring. Abdomen/GI: Soft, non-tender, with normal bowel sounds. No distension or tympany. No guarding or rebound. No evidence of tenderness throughout. Back: No spinal tenderness. No costovertebral tenderness. Full range of motion. Skin: Warm, dry with normal turgor. Normal color with no rashes, no lesions, and no evidence of cellulitis. Neuro: Awake and alert, GCS 15, oriented to person, place, time, and situation. Cranial nerves II-XII grossly intact. Motor strength 5/5 in all extremities. Sensory grossly intact. Cerebellar exam normal. Normal gait. 13:14 Musculoskeletal/extremity: Extremities: grossly normal except: noted in the dorsum of right foot: pain, swelling, tenderness, ROM: limited active range of motion due to pain, in the dorsum of right foot, Circulation is intact in all extremities. Sensation intact. Weight bearing: can bear weight with assistance only. Vital Signs: 12:37 BP 108 / 67; Pulse 72; Resp 20; Temp 98.2; Pulse Ox 99% ; Weight 99.79 kg; Height 5 ft. sv 7 in. (170.18 cm); Pain 10/10; 13:29 BP 121 / 71; Pulse 61; Resp 18; Pulse Ox 100% on R/A; Pain 7/10; tw2 13:29 Pain 7/10; tw2 12:37 Body Mass Index 34.46 (99.79 kg, 170.18 cm) sv MDM: 12:39 Patient medically screened. kb 13:09 Data reviewed: vital signs, nurses notes. Data interpreted: Pulse oximetry: on room air kb is 99 %. Interpretation: normal. 13:50 Counseling: I had a detailed discussion with the patient and/or guardian regarding: the kb historical points, exam findings, and any diagnostic results supporting the discharge/admit diagnosis, radiology results, the need for outpatient follow up, a orthopedic surgeon, to return to the emergency department if symptoms worsen or persist or if there are any questions or concerns that arise at home. 11/26 12:42 Order name: Foot Right 3 View XRAY kb 11/26 12:47 Order name: Ice pack; Complete Time: 12:47 tw2 11/26 13:50 Order name: Bernard Wrap; Complete Time: 13:55 kb 11/26 13:50 Order name: Crutches; Complete Time: 13:55 kb Administered Medications: 12:45 Drug: Martelle 5 mg-325 mg 1 tabs Route: PO; tw2 13:29 Follow up: Pain 05/24 Adult; Response: No adverse reaction; Pain is decreased tw2 Disposition: 17:28 Co-signature as Attending Physician, Jama Chen MD. Disposition: 11/26/18 13:50 Discharged to Home. Impression: Other sprain of right foot. - Condition is Stable. - Discharge Instructions: Foot Sprain. - Prescriptions for Diclofenac Sodium 75 mg Oral Tablet, Delayed Release (E.C.) - take 1 tablet by ORAL route 2 times per day As needed; 30 tablet. - Medication Reconciliation Form, Thank You Letter, Antibiotic Education, Prescription Opioid Use, Work release form form. - Follow up: Emergency Department; When: As needed; Reason: Worsening of condition. Follow up: Private Physician; When: 2 - 3 days; Reason: Recheck today's complaints, Continuance of care, Re-evaluation by your physician. Signatures: Dispatcher [employer] Sofi Sutton FNP-C FNP-Ckb Verde, Stephanie, RN RN Danielle Grover RN RN tw2 Jama Chen MD MD Corrections: (The following items were deleted from the chart) 14:15 13:50 11/26/2018 13:50 Discharged to Home. Impression: Other sprain of right foot. tw2 Condition is Stable. Forms are Work release form, Medication Reconciliation Form, Thank You Letter, Antibiotic Education, Prescription Opioid Use. Follow up: Emergency Department; When: As needed; Reason: Worsening of condition. Follow up: Private Physician; When: 2 - 3 days; Reason: Recheck today's complaints, Continuance of care, Re-evaluation by your physician. kb
[2018-11-26 14:19] VITALS: TEMP 98.2
[2018-11-26 14:21] VITALS: BP 121/71; O2SAT 100
--- NOTE | 2018-11-26 14:23 | RAD REPORT ---
EXAM DESCRIPTION: RAD - Foot Right 3 View - 11/26/2018 1:42 pm CLINICAL HISTORY: Right foot pain following twisting injury COMPARISON: None. FINDINGS: No gross fracture deformity is seen. However, there is faint lucency along the lateral cor abbie near the base fifth metatarsal. This is a common site for fracture and suspicious for fifth metat arsal fracture. No other confirmed or suspected fracture. No acute bone or joint finding otherwise noted. Patient has a small plantar spur and small spurring at the Achilles attachment. No air or foreign body in the soft tissues. IMPRESSION: Right fifth metatarsal fracture as detailed.
== END 2018-11-26 14:15 | disposition home or self-care (01) ==
LOC: ER 12:30
DX: S93.691A Other sprain of right foot, initial encounter (principal); X58.XXXA Exposure to other specified factors, initial encounter; Y93.89 Activity, other specified; Y92.89 Other specified places as the place of occurrence of the external cause; Y99.8 Other external cause status; I10 Essential (primary) hypertension
CPT/HCPCS: 99284